=== PATIENT | male | born 1950 | race Caucasian/White ===

== ENCOUNTER → 2021-02-28 | Outpatient (CLI) | payer OTHER, MEDICARE ==
[~2021-02-28] VITALS: Ht 175.3 cm; Wt 79.1 kg
[~2021-02-28] MED LIST: ASPIR 8181 M1 PO; ASPIR 8181 MG PO; CENTRUM SILVER1 EAC2 PO; COLACE100 MG PO; FLEXERIL PO; HYDROCODONE-AP1 EAC6 PO; IBUPROFEN 200200 M1 PO; LISINOPRIL10 MG PO; NABUMETONE 750750 M1 PO; ZOCOR20 MG PO; ZYRTEC10 M4 PO
[2021-02-28 10:11] VITALS: BP 152/69
[2021-02-28 10:19] LABS: HEMATOCRIT 39.9 % (42.0-52.0); HEMOGLOBIN 13.5 gm/dL (14.0-18.0); MCH 34.3 pg (26.0-34.0); MCHC 33.7 g/dL (28.0-37.0); MCV 101.8 fL (80.0-100.0); PLATELET COUNT 108 thou/uL (150-400); RBC 3.92 mil/uL (4.50-6.00); RDW 12.9 % (10.5-14.5)
[2021-02-28 10:27] LABS: CALCIUM 8.7 mg/dL (8.5-10.1); CREATININE 0.8 mg/dL (0.7-1.3); POTASSIUM 4.2 mmol/L (3.5-5.1)
[2021-02-28 10:33] LABS: APTT 26.8 Seconds (24.5-32.8); INR 0.93; PROTIME 10.2 Seconds (10.5-12.1)
[2021-02-28 12:45] VITALS: BP 152/80
[2021-02-28 13:32] LABS: ABSOLUTE NEUTROPHILS 2.5 thou/uL (1.4-8.2); MACROCYTES 1+
[2021-02-28 13:41] VITALS: BP 143/64
--- NOTE | 2021-03-15 12:07 | PATH ---
[facility] [address] [place] [address] PATHOLOGY RPT PROCEDURE Name: ADONIS DODD Room #: REG [facility]..#: [id number] Admission: 02/28/21 Date of : 50 Discharge: Report #: [id number] Path Case #: [id number] [facility] Accession Number: [id number] . 01 Material submitted: . PART A: bone - BONE MARROW BIOPSY PART B: bone - CLOT BONE MARROW ASPIRATE PART C: bone - BONE MARROW ASPIRATE SLIDES PART D: bone - BONE MARROW PERIPHERAL SMEARS PART E: bone - BONE MARROW SENDOUT . 01 Clinical history: . PANCYTOPENIA IR/BONE MARROW BX/ ASP/ PANCYOPENIA 71-YEAR-OLD MAN WITH MACROCYTOSIS AND THROMBOCYTOPENIA. . 02 Diagnosis: Bone marrow aspirate, biopsy, cell clot and peripheral blood: - Peripheral blood with RBC macrocytosis and mild thrombocytopenia. - Hypercellular bone marrow with trilineage hematopoiesis, erythroid hyperplasia, mild dyspoiesis and no evidence of lymphoma or acute leukemia. - See comment. (DAVIE:rosalino; 03/06/2021) . . Special studies report received from [facility], [address] [place] [address], [address], [place], [address], on case [id number], labeled with their number [id number], dated 03/04/2021. . Flow Cytometry: Hematologic Neoplasia Assessment . Clinical History Pancytopenia . Indication For Study Evaluation for hematolymphoid neoplasia . Specimen Bone Marrow Aspirate . Viability 91% (7AAD exclusion) . Interpretation Bone Marrow Aspirate: No significant immunophenotypic abnormalities detected . [address] [address] PATHOLOGY RPT PROCEDURE Name: ADONIS DODD Room #: REG [facility].#: [id number] Admission: 02/28/21 Date of : 50 Discharge: Report #: [id number] Path Case #: [id number] Comments An etiology for this patient's pancytopenia is not apparent in this analysis. No immunophenotypic evidence of acute leukemia, B-cell non-Hodgkin lymphoma, T-cell lymphoproliferative disorder, plasma cell dyscrasia or specific immunophenotypic changes associated with MDS or MPN is detected in this analysis. Notably, hematologic conditions such as MDS and MPN are difficult to definitively diagnose or exclude solely by flow cytometric analysis. A thorough clinical and pathologic correlation is recommended prior to the final disposition of this case. . Populations Analyzed Myeloid Blasts: 0.4% No significant immunophenotypic abnormalities Lymphocytes: 15% B-cells: 0.7%, polytypic/polyclonal sIg light chain pattern (K/L=1.1:1) T-cells: no significant abnormalities of the markers tested CD4+ T-cells: 9.5% (including 0.3% CD57+ cells) CD8+ T-cells: 2.5% (including 0.7% CD57+ cells) CD4:CD8: 3.7 NK cells: 1.7% Neutrophilic Cells: 75% No significant abnormalities of the markers tested Monocytic Cells: 5% No significant abnormalities of the markers tested Eosinophils: 3% No relative increase Basophils: 0.5% No relative increase Plasma Cells: 0.0% None detected, (cytoplasmic light chains were not assessed) Hematogones: 0.2% Normal B-cell precursors CD45 Negative 0.1% No significant reactivity with the markers Events/Debris: tested (may represent unlysed red blood cells, erythroid precursors, platelets, debris, etc.) (erythroid precursors may be underrepresented due to sample lysis/processing) . Morphologic Evaluation A slide was reviewed for quality project manager purposes only. . Specimen Description Cell Yield: 9.28 x 10 and 6 . Reagent(s) Used CD2, CD3, CD4, CD5, CD7, CD8, CD10, CD11b, CD11c, CD13, CD14, CD15, CD16, CD19, CD20, CD33, CD34, CD38, CD45, CD56, CD57, CD64, CD117, HLA-DR, kappa, lambda . [address] [address] PATHOLOGY RPT PROCEDURE Name: ADONIS DODD Room #: REG [facility] Giselle#: [id number] Admission: 02/28/21 Date of : 50 Discharge: Report #: [id number] Path Case #: [id number] at [employer] Asad Ruff MD Pathologist . Intended Use Flow cytometry is optimally used to immunophenotypically characterize abnormal populations when they are detected. Negative flow cytometry results do not exclude lymphoma or neoplasia. Possible false negative flow cytometry results may occur in, but are not limited to, the following: neoplastic cells in Hodgkin lymphoma are not typically adequately represented by routine clinical flow cytometry; neoplastic cells may be lost or inadequately represented due to degeneration, sample processing, sampling artifact, or patchy involvement; plasma cells are typically underrepresented by flow cytometry; immature cells/blasts may be underrepresented due to hemodilution; myeloproliferative disorders and low grade myelodysplasia may not have immunophenotypic abnormalities or increased blasts. Correlation with all available clinical, laboratory, and morphologic data is always necessary to assess for the possibility of false negative flow cytometry results and to establish a diagnosis. Each marker in this analysis was used to assess for potential antigenic abnormalities or to evaluate detected abnormalities. . Any image or images that accompany this report are volunteer patient representative images only and should not be used to render a diagnosis. . Disclaimer(s) This test was developed and its performance characteristics determined by [employer]. It has not been cleared or approved by the Food and Drug Administration. . Performing Labs [facility] is a business unit of [employer] a wholly-owned subsidiary of [employer]. . This test was performed at [facility]. at [address] [place], [address] - Patient Biller: Agustin Baxter MD. . For inquiries, the physician may contact Lab: [phone] . A complete copy of the report is on file. . Professional services performed by [employer] [facility]. at [address], [place] [address]. Technical services performed by [employer]. at [address], [place] [address]. [address] [address] PATHOLOGY RPT PROCEDURE Name: ADONIS DODD Room #: REG [facility]#: [id number] Admission: 02/28/21 Date of : 50 Discharge: Report #: [id number] Path Case #: [id number] . (CLW:too 03/04/2021) . [facility] 03/06/2021 1709 Local . 02 Comment: Overall the bone marrow is hypercellular for the patient's age with trilineage hematopoiesis, erythroid hyperplasia, mild dyspoiesis and no evidence of lymphoma or acute leukemia. The dyspoiesis is mild and while it could possibly represent a low grade myelodysplastic syndrome, it does not meet the morphologic criteria for myelodysplasia. Correlation with clinical history, additional laboratory data and cytogenetics is recommended. (CLW:rosalino; 03/06/2021) . 02 Addendum: . Special studies report received from [facility], [address] [place] [address], [address], [place], [address], on case [id number], labeled with their number [id number], dated 03/14/2021. . Cytogenetic Analysis Report . 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 Specimen Type: Bone Marrow . Indication for Study: Pancytopenia . INTERPRETATION: Cytogenetic analysis revealed four of twenty metaphase cells examined (20%) with a loss of the Y chromosome. . Loss of the Y chromosome is common in hematopoietic cells of older males and is generally considered to be an age-related phenomenon with no known clinical significance when seen in less than 75% of cells examined. . These findings should be interpreted in the context of clinical and pathologic findings. . See Flow Cytometry report [id number] for further information. . Number of Metaphases Counted: 20 Banding: G-banding Number of Metaphase Cells Analyzed: 20 Band Level: 375 Number of Metaphase Cells Karyotyped: 4 Cultures Established: 24/48 hour unstimulated . [facility] [address] [place] [address] PATHOLOGY RPT PROCEDURE Name: ADONIS DODD Room #: REG [facility]#: [id number] Admission: 02/28/21 Date of : 50 Discharge: Report #: [id number] Path Case #: [id number] References: Susan Falcon et al., Clinical significance of Y chromosome loss in hematologic disease. Genes, Chromosomes and Cancer 27:11-16, 1999. . at [facility]. Zenobia Martines, Ph.D., [facility] Director of Cytogenetics and Molecular Oncology . Disclaimer(s): Any image(s) that accompany this report is/are a volunteer patient representative image(s) only and should not be used to render a diagnosis. . Based on the resolution of this study, standard cytogenetic methodology does not routinely detect subtle or sub-microscopic rearrangements or low level mosaicism. . Performing Labs: This Test was performed at [facility]. at [address] [place] [address]. [facility] is a business unit of [employer] a wholly-owned subsidiary of [employer]. . A complete copy of the report is on file. . Professional services performed by [employer]. at [address] [place] [address]. Technical services performed by [employer]. at [address] [place] [address]. . (CLW:amj 03/15/2021) . . . [facility]/03/15/2021 Addendum Electronically Signed by Adrianne López MD, Pathologist . 02 Electronically signed: . Adrianne López MD, Pathologist NPI- [id number] . 01 Gross description: . A. The specimen is received in formalin, labeled "Adonis Dodd, BM biopsy" and consists of a soft to rubbery maroon core biopsy (0.7 cm in length x 0.2 cm diameter) which is filtered and submitted in toto in A1 following brief treatment in immunocal / decalcification. . [address] [address] PATHOLOGY RPT PROCEDURE Name: ADONIS DODD Room #: REG [facility]#: [id number] Admission: 02/28/21 Date of : 50 Discharge: Report #: [id number] Path Case #: [id number] B. The specimen is received in formalin, labeled "Adonis Dodd, BM aspirate clot" and consists of multiple soft maroon tissues aggregating 0.4 x 0.3 x 0.1 cm which are filtered and submitted in toto in B1 following brief treatment in immunocal. (HUALAPAI; 02/28/2021) DKA/DKA 03/07/2021 2238 Local . 02 Microscopic: . CBC Data (02/28/21): WBC 5000 /uL, RBC 3.92, hemoglobin 13.5 g/dL, hematocrit 39.9%, MCV 101.8 fL, MCH 34.3 pg, MCHC 33.7 g/dL, RDW 12.9%, and platelet count 108,000 /uL. White blood cell differential: Segs 50%, lymphs 38%, monos 6%, eos 5%, and basos 1%. . Peripheral Blood Smear: Cytomorphological examination of the Miller's stained peripheral blood smear confirms the provided data. Red blood cells show macrocytosis with no significant anisopoikilocytosis. White blood cells are predominantly segmented neutrophils and are without significant dyspoiesis or a significant left shift. Lymphocytes are predominantly small, round, and mature appearing with condensed chromatin and scant cytoplasm with admixed large granular lymphocytes and reactive appearing lymphocytes. On scanning, no markedly atypical lymphoid cells are seen. Monocytes are mature. Platelets are mildly decreased in number and mainly normal in morphology with rare larger platelets noted. . Aspirate Smears: Cytomorphological examination of the Miller's stained aspirate smears show hypercellular spicules present. The overall cellularity is approximately 70%. The myeloid to erythroid ratio is 1:1. Full myeloid maturation is identified and is mildly dyspoietic with abnormal cytoplasmic granularity. Erythroid maturation is mildly dyserythropoietic with irregular nuclear contours and nuclear cytoplasmic dyssynchrony. In a 500 cell differential, there are 1% blasts (no Slick rods are seen), 50% more differentiated myeloids, 41% erythroid precursors, 7% lymphocytes and 1% plasma cells. Megakaryocytes are proportional in number and both normal and abnormal in morphology with variable sizes and nuclear abnormalities. No lymphoid aggregates or markedly atypical lymphoid cells are seen. Plasma cells are without atypia. Iron stain of the aspirate smear shows 0/4+ iron positivity with spicules present. No ringed sideroblasts are identified. . Core Biopsy and Cell Clot: The decalcified bone marrow core biopsy is adequate. The bone marrow is hypercellular with an overall cellularity of approximately 70-80%. The myeloid to erythroid ratio is 1:1. Myeloid and erythroid maturation are mildly dyspoietic. Megakaryocytes are normal in number and both normal and abnormal in morphology. No lymphoid aggregates or markedly atypical lymphoid cells are seen. Bony trabeculae and blood vessels are unremarkable. The cell clot has spicules present that are similar in [address] [address] PATHOLOGY RPT PROCEDURE Name: ADONIS DODD Room #: REG [facility].#: [id number] Admission: 02/28/21 Date of : 50 Discharge: Report #: [id number] Path Case #: [id number] cellularity and differential morphology as previously described. . Properly controlled special stains are performed. . Block A1: Iron - 1/4+ iron positivity; Reticulin - focal reticulin fibers with disrupted spicules present. . Block B1: Iron - 1/4+ iron positivity with spicules present. . Flow Cytometry: Flow cytometric immunophenotypic analysis was performed at [facility]. The interpretation is "no significant immunophenotypic abnormalities detected." There are 0.4% myeloid blasts. There are 15% lymphocytes. Of the lymphocytes, there are 0.7% polyclonal B-cells. T-cells have a CD4/CD8 ratio of 3.7 and no aberrant T-cell antigen expression. Please see separate flow cytometry report from [facility] ([id number]). . Cytogenetics Analysis: Cytogenetic chromosomal analysis is pending at [facility] ([id number]). . (CLW:rosalino; 03/06/2021) . 02 Pathologist provided ICD-10: D69.6, D75.89 . 02 CPT . 115966, 850758, 694878, 437441, 305947, 965174, 567431, 063125, [id number] Specimen Comment: A courtesy copy of this report has been sent to [phone] Specimen Comment: [id number], Specimen Comment: Report sent to , DR WILSON / DR DAVIS Performed at: [address] [facility], [place] [id number] MD Rolly Gonsales MD Phone: [phone] Performed at: 02 [facility] [id number] [place] [id number] MD Adrianne López MD Phone: [phone]
== END | disposition home or self-care (01) ==
LOC: SPEC 09:14
PROVIDERS: Radiology Diagnostic Radiology; ATTEND Internal Medicine Hematology & Oncology
DX: D69.6 Thrombocytopenia, unspecified (principal); D75.89 Other specified diseases of blood and blood-forming organs; D70.9 Neutropenia, unspecified; I10 Essential (primary) hypertension; E78.00 Pure hypercholesterolemia, unspecified; E78.5 Hyperlipidemia, unspecified; F17.210 Nicotine dependence, cigarettes, uncomplicated; Z98.890 Other specified postprocedural states; Z79.899 Other long term (current) drug therapy; Z82.49 Family history of ischemic heart disease and other diseases of the circulatory system; Z88.8 Allergy status to other drugs, medicaments and biological substances